=== PATIENT | female | born 1995 | race Hispanic/Latino ===

== ENCOUNTER 2018-07-08 05:32 | Emergency (ER) | payer BC, OTHER ==
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
[2018-07-08 07:03] LABS: Urine Blood 2+ (NEG); Urine Glucose NEGATIVE (NEG); Urine Protein NEGATIVE (NEG); Urine pH 5.5 (5.0-7.0)
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
[2018-07-08] MEDS ORDERED: IBUPROFEN 400 MG TAB ONE (08:55)
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
== END 2018-07-08 08:59 | disposition home or self-care (01) ==
LOC: ER 05:32
DX: S00.90XA Unspecified superficial injury of unspecified part of head, initial encounter (principal); S00.83XA Contusion of other part of head, initial encounter; Y09 Assault by unspecified means; Y99.0 Civilian activity done for income or pay; Z04.71 Encounter for examination and observation following alleged adult physical abuse
CPT/HCPCS: 70486; 76377; 81003; 81025; 99284